=== PATIENT | female | born 1990 | race Caucasian/White ===

== ENCOUNTER 2023-07-07 16:12 | Emergency (ER) | payer MEDICAID ==
[~2023-07-07] VITALS: Ht 154.9 cm; Wt 86.2 kg
[2023-07-07] MEDS ORDERED: IBUPROFEN 600MG TABLET PO ONE (16:30)
[2023-07-07 16:31] VITALS: TEMP 98.4; O2SAT 100
[2023-07-07] MEDS ORDERED: IBUP-2029 MT (19:27)
[2023-07-07] MEDS ORDERED: IBUPROFEN 600MG TABLET PO NR (19:45)
[2023-07-07 20:06] VITALS: BP 128/88; PULSE 106; RESP 16
== END 2023-07-07 20:11 | disposition home or self-care (01) ==
LOC: ER 16:12
DX: R51.9 Headache, unspecified (principal); M79.662 Pain in left lower leg; M79.661 Pain in right lower leg; F41.9 Anxiety disorder, unspecified; F32.A Depression, unspecified
CPT/HCPCS: 93970; 99284